=== PATIENT | male | born 1975 | race Caucasian/White ===

== ENCOUNTER 2024-01-13 15:13 | Outpatient (CLI) | payer OTHER, SELFPAY ==
[2024-01-13 20:19] LABS: Coronavirus 19, PCR Not Detected (NotDetected); Influenza A, PCR Not Detected (NotDetected); Influenza B, PCR Not Detected (NotDetected)
== END 2024-01-13 23:59 | disposition home or self-care (01) ==
LOC: LAB.DROPOF 01-14 12:06
PROVIDERS: PCP Nurse Practitioner; Visit Provider Nurse Practitioner
DX: J06.9 Acute upper respiratory infection, unspecified (principal)
CPT/HCPCS: 87636

== ENCOUNTER 2024-02-03 10:12 | Outpatient (CLI) | payer OTHER, SELFPAY ==
--- NOTE | 2024-02-03 10:52 | XR_ITS ---
FINAL REPORT CLINICAL HISTORY: cough, LLL pneumonia COMPARISON: None FINDINGS: Two views of the chest were obtained. The heart size and pulmonary vascularity are within normal limits. The mediastinum is normal. There are mild bibasilar opacities which favor atelectasis. There is no pneumothorax. There are postoperative changes of the lower cervical spine. IMPRESSION: Findings favor bibasilar atelectasis. Reviewed, Interpreted and Dictated by Adrien Antony III, MD Transcribed by Chrissy Crespo Authenticated and . [facility]
[2024-02-03 11:36] LABS: Microalbumin/Creatinine Ratio 32.5
[2024-02-03 11:42] LABS: Creatinine,Urine Random 223 mg/dL (Not Estab.)
[2024-02-03 19:20] LABS: Alanine Aminotransferase 59 U/L (12-78); Albumin/Globulin Ratio 1.4 (1.1-1.8); Alkaline Phosphatase 50 U/L (38-126); Anion Gap 10.1 mEq/L (5-15); Aspartate Amino Transferase 44 U/L (17-59); Bilirubin,Total 0.7 mg/dl (0.2-1.3); Blood Urea Nitrogen 15 mg/dl (9-20); Carbon Dioxide 26 mmol/L (22.0-30.0); Chloride 106 mmol/L (98-107); Chol/HDL Ratio 4.6 (1-3.5); Cholesterol 167 mg/dl (140-200); Estimated Glomerular Filt Rate 71 ml/min (>60); GFR (African American) 86 ML/MIN (>60); Globulin 2.9 g/dL (1.3-3.2); Glucose 111 mg/dl (74-100); HDL Cholesterol 36 mg/dl (40-60); Potassium 4.1 mmoL/L (3.5-5.1); Sodium 138 mmol/L (136-145); Total Protein,Serum 6.9 g/dl (6.3-8.2); Triglycerides 208 mg/dl (30-150); VLDL Cholesterol 42 mg/dL (0-40)
[2024-02-03 19:30] LABS: Direct LDL Cholesterol 96.47 mg/dL (100-129)
[2024-02-03 19:36] LABS: Basophils # 0.1 K/mm3 (0-0.2); Basophils % 0.9 % (0.1-2.0); Eosinophils # 0.5 K/mm3 (0.0-0.4); Eosinophils % 7.6 % (0.1-12.0); Hematocrit 42.5 % (42.0-52.0); Hemoglobin 14.2 g/dL (14.1-18.0); Lymphocytes # 1.6 K/mm3 (0.7-4.5); Lymphocytes % 22.7 % (10-50); Mean Corpuscular HGB Conc 33.4 g/dL (31.8-35.4); Mean Corpuscular Hemoglobin 29.7 pg (27.0-31.2); Mean Corpuscular Volume 88.9 fl (80-94); Mean Platelet Volume 8.4 fl (7.4-10.4); Monocytes # 0.4 K/mm3 (0.1-1.0); Monocytes % 6.1 % (1.7-9.3); Neutrophils # 4.4 K/mm3 (1.8-7.8); Neutrophils % 62.8 % (37.0-80.0); Platelet Count 304 K/mm3 (142-424); Red Blood Count 4.78 M/mm3 (4.60-6.20); Red Cell Distribution Width 14.3 % (11.5-17.5)
[2024-02-03 19:50] LABS: Prostate Specific Ag Screen 1.6 ng/ml (0.0-4.0); Thyroid Stimulating Hormone 1.19 uIU/mL (0.465-4.68)
[2024-02-03 20:04] LABS: Hemoglobin A1C 5.8 % (4.0-6.0)
[2024-02-03 20:09] LABS: Vitamin B12 609 pg/mL (239-931)
== END 2024-02-03 23:59 | disposition home or self-care (01) ==
LOC: LAB 10:13
PROVIDERS: PCP Nurse Practitioner; Visit Provider Nurse Practitioner
DX: Z12.5 Encounter for screening for malignant neoplasm of prostate (principal); I10 Essential (primary) hypertension; E78.5 Hyperlipidemia, unspecified; E66.9 Obesity, unspecified; R05.9 Cough, unspecified; J18.9 Pneumonia, unspecified organism; Z68.41 Body mass index [BMI] 40.0-44.9, adult; Z87.891 Personal history of nicotine dependence
CPT/HCPCS: 71046; 80050; 80053; 80061; 82043; 82306; 82570; 82607; 83036; 84443; 85025; G0103

== ENCOUNTER 2024-06-24 11:50 | Outpatient (CLI) | payer OTHER, SELFPAY ==
[2024-06-24 18:31] LABS: Human Rhinovirus Not Detected (NotDetected); Influenza A, PCR Not Detected (NotDetected); Influenza B, PCR Not Detected (NotDetected); Respiratory Syncytial Virus Not Detected (NotDetected)
[2024-06-25 04:08] LABS: Coronavirus 19, PCR Detected (NotDetected)
== END 2024-06-24 23:59 | disposition home or self-care (01) ==
LOC: LAB.DROPOF 06-25 11:51
PROVIDERS: PCP Nurse Practitioner; Visit Provider Nurse Practitioner
DX: J06.9 Acute upper respiratory infection, unspecified (principal); R05.9 Cough, unspecified; R69 Illness, unspecified; Z87.891 Personal history of nicotine dependence
CPT/HCPCS: 87631

== ENCOUNTER 2024-10-07 14:48 | Outpatient (CLI) | payer OTHER, SELFPAY ==
[2024-10-07 18:32] LABS: Basophils # 0.1 K/mm3 (0-0.2); Basophils % 1.1 % (0.1-2.0); Eosinophils # 0.5 Kmm3 (0.0-0.4); Eosinophils % 6.8 % (0.1-12.0); Hematocrit 40.3 % (42.0-52.0); Hemoglobin 13.2 g/dL (14.1-18.0); Immature Granulocytes # 0.01 10^3uL; Immature Granulocytes % 0.1 %; Lymphocytes # 1.8 K/mm3 (0.7-4.5); Lymphocytes % 24.8 % (10-50); Mean Corpuscular HGB Conc 32.8 g/dL (31.8-35.4); Mean Corpuscular Hemoglobin 29.3 pg (27.0-31.2); Mean Corpuscular Volume 89.4 fl (80-94); Mean Platelet Volume 10.8 fl (7.4-10.4); Monocytes # 0.6 K/mm3 (0.1-1.0); Monocytes % 7.9 % (1.7-9.3); Neutrophils # 4.2 K/mm3 (1.8-7.8); Neutrophils % 59.3 % (37.0-80.0); Nucleated Red Blood Cells # 0 10^3/uL; Nucleated Red Blood Cells % 0 %; Platelet Count 287 K/mm3 (142-424); Red Blood Count 4.51 M/mm3 (4.60-6.20); Red Cell Distribution Width 13.5 % (11.5-17.5); White Blood Count 7.1 K/mm3 (4.8-10.8)
[2024-10-07 19:03] LABS: Microalbumin/Creatinine Ratio 10.1
[2024-10-07 19:09] LABS: Creatinine,Urine Random 169 mg/dL (Not Estab.)
[2024-10-07 19:32] LABS: Albumin Level 4.1 g/dl (3.5-5.0); Chloride 109 mmol/L (98-107); Potassium 3.9 mmoL/L (3.5-5.1); Sodium 140 mmol/L (136-145)
[2024-10-07 19:33] LABS: Hemoglobin A1C 5.6 % (4.0-6.0)
[2024-10-07 19:34] LABS: Blood Urea Nitrogen 16 mg/dl (9-20); Estimated Glomerular Filt Rate 64 ml/min (>60); GFR (African American) 78 ML/MIN (>60)
[2024-10-07 19:35] LABS: Alanine Aminotransferase 68 U/L (12-78); Albumin/Globulin Ratio 1.4 (1.1-1.8); Alkaline Phosphatase 49 U/L (38-126); Anion Gap 8.9 mEq/L (5-15); Aspartate Amino Transferase 51 U/L (17-59); Bilirubin,Total 0.5 mg/dl (0.2-1.3); Calcium 10.2 mg/dl (8.4-10.2); Carbon Dioxide 26 mmol/L (22.0-30.0); Chol/HDL Ratio 7.2 (1-3.5); Cholesterol 224 mg/dl (140-200); Glucose 95 mg/dl (74-100); HDL Cholesterol 31 mg/dl (40-60); Total Protein,Serum 7.1 g/dl (6.3-8.2); Triglycerides 248 mg/dl (30-150); VLDL Cholesterol 50 mg/dL (0-40)
[2024-10-07 19:46] LABS: Direct LDL Cholesterol 151.95 mg/dL (100-129)
[2024-10-07 20:11] LABS: Thyroid Stimulating Hormone 0.42 uIU/mL (0.465-4.68)
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
--- OUTSIDE RECORDS SUMMARY | 2024-10-08 23:26 | XMS_ITS | Patient Health Record ---
Author Organization [facility] Address [address] [place] [address] Care Team Providers Care Carbide Powder Processor Name Role Phone ilan loera Primary Care Provider Unavailable Mary Metz Unavailable [phone] Allergies No Known Allergies Results Component Value Reference Range Notes Flu/COVID Rapid Antigen (IH) Reviewed date:03/18/2024 03:54:58 PM Interpretation:Negative Performing Lab: Notes/Report: Negative Flu A neg Negative - Positive Flu B neg Negative - Positive SARS CoV 2 neg Negative - Positive Rapid Strep Screen (IH) Reviewed date:03/18/2024 03:54:27 PM Interpretation:Negative Performing Lab: Notes/Report: Negative Negative negative Reason For Referral No Information Medications Medication SIG (Take, Route, Frequency, Duration) Notes Start Date End Date Status Atorvastatin Calcium 40 MG 1 tablet Oral ly Once a day Active Losartan Potassium-HCTZ 100-12.5 MG TAKE 1 TABLET BY MOUTH ONCE DAILY Oral Active Albuterol Sulfate HFA 108 (90 Base) MCG/ACT 2-3 puffs as needed Inhalation every 4 hrs 03/18/2024 Active Problems Problem Type SNOMED Code ICD Code Onset Dates Problem Status W/U Status Risk Notes Problem 61733398 Elevated BP (796.2) Active confirmed Problem Hypertension (34061424) Hypertension (I10) Active confirmed Problem Elevated blood-pressure reading without diagnosis of hypertension (288140189) Elevated blood-pressure reading without diagnosis of hypertension (R03.0) Active confirmed Problem Obese class II (723558072926057 ) BMI 39.0-39.9,adult (Z68.39) Active confirmed Vital Signs Temperature 98.3 degrees Fahrenheit 03/18/2024 Respiratory Rate 16 /min 03/18/2024 Blood pressure diastolic 84 mm Hg 03/18/2024 Height 71 in 03/18/2024 Blood pressure systolic 128 mm Hg 03/18/2024 Weight 310 lbs 03/18/2024 BMI 43.23 kg/m2 03/18/2024 Encounters Encounter Location Date Provider Diagnosis [id number] [place] [address] [address] 03/18/2024 Mary Metz Viral upper respiratory infection J06.9 ; Wheezing R06.2 and Hypertension I10 Assessments Encounter Date Diagnosis (ICD Code) Assessment Notes Treatment Notes Treatment Clinical Notes Section Notes 03/18/2024 Wheezing (ICD-10 - R06.2) 03/18/2024 Viral upper respiratory infection (ICD-10 - J06.9) force fluids - water and electrolyte drinks are best. Continue taking Theraflu or Mucinex as needed for your symptoms. Symptoms appear viral in nature. If symptoms persist or worsen greater than 10 days, follow up in the clinic or with PCP for further evaluation. 03/18/2024 Hypertension (ICD-10 - I10) 03/18/2024 Other NOTE to Provider of Record: MIPS recommendations for Pre Hypertensive Reading in the past 12 months (120-129 systolic or >/= 80 diastolic): 1) Recommend to rescreen blood pressure in 2-6 months AND 2) Provide and document recommendations for non-pharmacologic interventions in the Preventative Medicine window, which may include Lifestyle recommendations, Physical Activity recommendations, Weight Reduction Recommendations, or Dietary Recommendations OR Provide and document a referral to alternate care provider Plan Of Treatment No Information Insurance Providers Payer Name Payer Address Payer Phone Subscriber Number Group Number Insured Name Patient Relationship to Insured Coverage Start Date Coverage End Date [facility] [address] [address] [place] [phone] [id number] Humberto Kirby Self - patient is the insured Medical (General) History Medical History History ICD Code hypertension cholesterol Surgical History Surgery Date(Month/Year) neck/ C5,6,7 fused right ACL repair bilateral ankle fx repair x2 Hospitalization History Reason Date(Month/Year) surgeries above
--- OUTSIDE RECORDS SUMMARY | 2024-10-08 23:26 | XMS_ITS | Referral Summary ---
Author Organization [facility] Address [address] [place] [address] [place] [address] Phone Care Team Providers Care Cafe Lead Name Role Phone Kelvin Freire MD Primary Care Provider [phone] Social History Tobacco Use Types Packs/Day Years Used Date Smoking Tobacco: Never Assessed Sex and Gender Information Value Date Recorded Sex Assigned at Not on file Legal Sex Male 8:01 PM EDT Gender Identity Not on file Sexual Orientation Not on file Plan of Treatment Not on file Insurance [employer]RAZA CROSS ALL OTHERS NOT MEDICARE ANTHJAIL[employer]RAZA CROSS ALL OTHERS NOT MEDICARE Care Teams Cafe Lead Relationship Specialty Start Date End Date Kelvin Freire MD PCP - General Family Medicine 04/12/13
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
--- OUTSIDE RECORDS SUMMARY | 2024-10-08 23:26 | XMS_ITS | Clinical Summary ---
Author Organization [facility] Address [address] [place] [address] [place] [address] Phone Care Team Providers Care Billboard Erector Name Role Phone Kelvin Freire MD Primary Care Provider Social History Tobacco Use Types Packs/Day Years Used Date Smoking Tobacco: Never Assessed Sex and Gender Information Value Date Recorded Sex Assigned at Not on file Legal Sex Male 8:01 PM EDT Gender Identity Not on file Sexual Orientation Not on file Plan of Treatment Health Maintenance Due Date Last Done Comments DTap,Tdap,and Td (1 - Tdap) 1985 Colonoscopy 2019 PSA YEARLY 02/03/2024 Pneumococcal 50+ (1 of 1 - PCV) 02/03/2024 Shingrix (#1) 02/03/2024 Influenza Vaccine (Season Ended) 2024 RSV Vaccine (60+ or ) (1 - 1-dose 75+ series) 2049 HPV Aged Out No longer eligi ble based on patient's age to complete this topic Meningococcal conjugate grover nt 4 (MCV4) Aged Out No longer eligible b ased on patient's age to complete this topic RSV Immunization (<20 months) Aged Out No longer eligible based on patient's age to complete this topic Insurance [employer] ALL OTHERS NOT MEDICARE ANTH BLUE CROSS ALL OTHERS NOT MEDICARE Care Teams Billboard Erector Relationship Specialty Start Date End Date Kelvin Freire MD PCP - General Family Medicine 04/12/13
[2024-10-09 08:21] LABS: Testosterone,Total 234 ng/dL (264-916)
== END 2024-10-07 23:59 | disposition home or self-care (01) ==
LOC: LAB.DROPOF 10-08 23:24
PROVIDERS: PCP Nurse Practitioner; Visit Provider Nurse Practitioner
DX: I10 Essential (primary) hypertension (principal); E66.9 Obesity, unspecified; E78.5 Hyperlipidemia, unspecified; R53.83 Other fatigue; R73.01 Impaired fasting glucose
CPT/HCPCS: 80053; 80061; 82043; 82570; 83036; 84403; 84443; 85025

== ENCOUNTER 2025-01-20 10:49 | Outpatient (CLI) | payer OTHER, SELFPAY ==
--- NOTE | 2025-01-20 10:51 | XR_ITS ---
FINAL REPORT CLINICAL HISTORY: bilateral low back pain with left-sided sciatica FINDINGS: AP and lateral views of the lumbar spine were obtained. There is no prior exam for comparison. There is no acute fracture or malalignment. Mild degenerative disc disease is noted at L1-2 and L5-S1. No acute paraspinal abnormality. IMPRESSION: Degenerative changes without acute osseous abnormality of the lumbar spine. Reviewed, Interpreted and Dictated by Kathy Dalal MD Transcribed by Mary Ventura Authenticated and [facility]
--- NOTE | 2025-01-20 10:51 | XR_ITS ---
FINAL REPORT CLINICAL HISTORY: bilateral low back pain with left-sided sciatica FINDINGS: An AP view of the pelvis and a frog leg view of the left hip were obtained. There is no prior exam for comparison. There is no acute fracture or dislocation. Joint space is preserved. Remaining osseous pelvis is without acute abnormality. Soft tissues are unremarkable. IMPRESSION: No acute osseous abnormality of the left hip. Reviewed, Interpreted and Dictated by Kathy Dalal MD Transcribed by Mary Ventura Authenticated and [facility]
--- OUTSIDE RECORDS SUMMARY | 2025-01-20 10:59 | XMS_ITS | Clinical Summary ---
Author Organization [facility] Address [address] [place] [address] [place] [address] Phone Care Team Providers Care Machine Stonecutter Name Role Phone Kelvin Freire MD Primary [...] PCV) 02/03/2024 Shingrix (#1) 02/03/2024 Influenza Vaccine (#1) 2024 RSV Vaccine (60+ or ) (1 [...] CROSS ALL OTHERS NOT MEDICARE Care Teams Machine Stonecutter Relationship Specialty Start Date End Date Kelvin Freire MD PCP - General Family Medicine 04/12/13
== END 2025-01-20 23:59 | disposition home or self-care (01) ==
LOC: RAD 10:50
PROVIDERS: PCP Nurse Practitioner; Visit Provider Nurse Practitioner
DX: M47.26 Other spondylosis with radiculopathy, lumbar region (principal); M62.830 Muscle spasm of back
CPT/HCPCS: 72100; 73502